=== PATIENT | female | born 1955 | race Caucasian/White ===

== ENCOUNTER → 2018-11-25 | Outpatient (CLI) | payer MEDICARE, OTHER | END | disposition home or self-care (01) | LOC: LAB SHORT 18:23 → LAB 18:23 | DX: B02.9 Zoster without complications (principal); L81.4 Other melanin hyperpigmentation; M79.2 Neuralgia and neuritis, unspecified | CPT/HCPCS: 87798 ==

== ENCOUNTER 2021-05-25 09:49 | Emergency (ER) | payer MEDICARE, OTHER ==
[~2021-05-25] VITALS: Ht 165.1 cm; Wt 76.7 kg
[2021-05-25] MEDS ORDERED: Naprosyn500 MG PO (12:38)
[2021-05-25] MEDS ORDERED: CYCL10 PO (12:38)
== END 2021-05-25 12:50 | disposition home or self-care (01) ==
LOC: ER 09:49
DX: M43.6 Torticollis (principal); Z88.5 Allergy status to narcotic agent
CPT/HCPCS: 96372; 99283-25; A9270; J1885

== ENCOUNTER → 2022-04-03 | Outpatient (CLI) | payer MEDICARE, OTHER ==
[~2022-04-03] MED LIST: CYCL10 PO; Naprosyn500 MG PO
== END ==
LOC: LAB SHORT 10:53 → LAB 10:53
DX: Z08 Encounter for follow-up examination after completed treatment for malignant neoplasm (principal); S91.102A Unspecified open wound of left great toe without damage to nail, initial encounter; B35.1 Tinea unguium; Z86.007 Personal history of in-situ neoplasm of skin; Z72.0 Tobacco use
CPT/HCPCS: 87070; 87077; 87186; 87205